=== PATIENT | female | born 1965 | race Caucasian/White ===

== ENCOUNTER 2022-10-06 10:36 | Emergency (ER) | payer OTHER ==
[~2022-10-06] VITALS: Ht 162.6 cm; Wt 81.6 kg
--- NOTE | 2022-10-06 11:12 | NUR ---
Rachel burnett in ED - 10/06/22 at 1810 by [email or web address] Placed in room 6 . Placed on traffic monitor specialist, blood pressure machine and pulse oximeter. To gown for exam. Side rails up.
--- NOTE | 2022-10-06 11:20 | NUR ---
Patient triaged and placed in waiting room. VSS and patient appears in no acute distress at this time. Accompanied by SELF, awaiting available bed, and MD notified of need for MSE.
[2022-10-06 11:57] LABS: BASOPHILS % (AUTO) 0.7 % (0.0-2.0); EOSINOPHILS # (AUTO) 0.1 K/uL (0.0-0.4); EOSINOPHILS % (AUTO) 2.6 % (0.0-4.0); HEMATOCRIT 39.4 % (36-48); HEMOGLOBIN 13.4 g/dL (12.0-16.0); LYMPHOCYTES # (AUTO) 1.4 K/uL (1.0-5.5); LYMPHOCYTES % (AUTO) 25.3 % (20.5-51.5); MEAN CORPUSCULAR HEMOGLOBIN 31 pg (27-31); MEAN CORPUSCULAR HGB CONC 34 % (32-36); MEAN CORPUSCULAR VOLUME 90 fL (79.0-98.0); MONOCYTES # (AUTO) 0.5 K/uL (0.0-1.0); MONOCYTES % (AUTO) 8.2 % (1.7-9.3); NEUTROPHILS # (AUTO) 3.6 K/uL (1.8-7.7); NEUTROPHILS % (AUTO) 63.2 % (40.0-70.0); PLATELET COUNT (AUTO) 243 K/uL (130-430); RED BLOOD CELL COUNT(AUTO) 4.37 MIL/uL (4.2-6.2); RED CELL DISTRIBUTION WIDTH 13.5 % (9.0-15.0); WHITE BLOOD COUNT (AUTO) 5.7 K/uL (4.8-10.8)
[2022-10-06 12:29] LABS: CALCIUM 9.5 mg/dL (8.4-11.0); CREATININE 0.87 mg/dL (0.55-1.30)
[2022-10-06 12:36] LABS: ALBUMIN 3.7 g/dL (3.4-4.8); TOTAL BILIRUBIN 0.2 mg/dL (0.0-1.0)
[2022-10-06 13:43] LABS: BILIRUBIN,URINE NEGATIVE (NEGATIVE); BLOOD, URINE NEGATIVE (NEGATIVE); CLARITY/URINE CLEAR (CLEAR); COLOR,URINE YELLOW (YELLOW); GLUCOSE,URINE NEGATIVE (NEGATIVE); KETONES,URINE TRACE (NEGATIVE); LEUKOCYTE ESTERASE ,URINE 1+ (NEGATIVE); NITRITE, URINE NEGATIVE (NEGATIVE); PROTEIN URINE NEGATIVE (NEGATIVE)
[2022-10-06 13:50] LABS: BACTERIA,URINE None Seen /HPF (None Seen); MUCUS,URINE None Seen /LPF (None Seen); RBC,URINE 0-3 /HPF (0-3); WBC,URINE 0-3 /HPF (0-3)
--- NOTE | 2022-10-06 13:59 | NUR ---
ER Dr. LÓPEZ IN WAITING ROOM examining patient.
--- NOTE | 2022-10-06 18:00 | NUR ---
Placed in room 06 . Placed on environmental monitoring technician, blood pressure machine and pulse oximeter. To gown for exam. Side rails up.
--- NOTE | 2022-10-06 18:05 | NUR ---
PATIENT CAME IN FROM HOME C/O ABD PAIN. PAIN PER PT, 05/09. PT ALSO STATES SHE HAS RECENTLY BEEN HAVING DARK, FROTHY URINE AND IS CONCERNED. DENIES MEDICAL AND SURGICAL HX. VSS, PATIENT IS CALM AND COOPERATIVE. CARE TO BE PROVIDED ORDERED.
[2022-10-06] MEDS ORDERED: METR-154 PO (18:59)
--- NOTE | 2022-10-06 19:08 | NUR ---
Patient given written and verbal discharge instructions and verbalizes understanding. ER DR. MARIBEL ELLIOTT discussed with patient the results and treatment provided. Patient in stable condition. ID arm band removed. Rx of METRONIDAZOLE given. Patient educated on pain management and to follow up with PMD. Pain Scale 0/10. Opportunity for questions provided and answered. Medication side effect fact sheet provided.
== END 2022-10-06 19:10 | disposition home or self-care (01) ==
LOC: SED 10:36
DX: N76.0 Acute vaginitis (principal); Z91.011 Allergy to milk products; Z79.899 Other long term (current) drug therapy
CPT/HCPCS: 36415; 76376; 80053; 81000; 83690; 85025; 87086; 87210-TC; 99284